=== PATIENT | female | born 1995 | race Two or more races ===

== ENCOUNTER 2017-03-07 23:59 | Emergency (ER) | payer OTHER ==
[~2017-03-07] VITALS: Ht 180.3 cm; Wt 68.0 kg
[2017-03-08 00:04] VITALS: BP 116/80
== END 2017-03-08 00:18 | disposition left against medical advice (07) ==
LOC: ER 23:59
DX: R10.30 Lower abdominal pain, unspecified (principal); R11.2 Nausea with vomiting, unspecified; R19.7 Diarrhea, unspecified; Z53.21 Procedure and treatment not carried out due to patient leaving prior to being seen by health care provider